=== PATIENT | male | born 1955 | race Caucasian/White ===

== ENCOUNTER → 2024-01-31 | Outpatient (CLI) | payer OTHER | END | disposition home or self-care (01) | LOC: RAH 10:42 | PROVIDERS: ATTEND Physician Assistant | DX: Z13.6 Encounter for screening for cardiovascular disorders (principal) | CPT/HCPCS: 75571 ==

== ENCOUNTER → 2024-03-12 | Outpatient (CLI) | payer MEDICARE | END | disposition home or self-care (01) | LOC: EDUNIT# 13:00 → SHCH 13:02 | PROVIDERS: ATTEND Internal Medicine Cardiovascular Disease | DX: I35.0 Nonrheumatic aortic (valve) stenosis (principal) | CPT/HCPCS: 93306 ==

== ENCOUNTER → 2024-04-09 | Outpatient (CLI) | payer MEDICARE ==
[2024-04-09] MEDS: REGADENOSON 0.4 MG/5 ML PF SYG IVP SCH (13:01)
== END | disposition home or self-care (01) ==
LOC: RAH 08:40
PROVIDERS: ATTEND Internal Medicine Cardiovascular Disease
DX: R07.9 Chest pain, unspecified (principal)
CPT/HCPCS: 78452; 93017; J2785; A9500 ×2

== ENCOUNTER → 2024-08-31 | Outpatient (CLI) | payer MEDICARE | END | disposition home or self-care (01) | LOC: SHCH 10:22 | PROVIDERS: ATTEND Internal Medicine Cardiovascular Disease | DX: I65.21 Occlusion and stenosis of right carotid artery (principal) | CPT/HCPCS: 93880 ==

== ENCOUNTER 2025-06-20 15:32 | Emergency (ER) | payer MEDICARE, OTHER ==
[~2025-06-20] VITALS: Ht 182.9 cm; Wt 74.8 kg
[2025-06-20] MEDS: TRIAMCINOLONE ACETONIDE 40 MG/ML 1ML VIAL IM ONE (16:26)
[2025-06-20] MEDS: ORPHENADRINE 60MG/2ML IM ONE (16:26)
[2025-06-20 16:38] LABS: IMMATURE GRANULOCYTE ABSOLUTE 0.05 K/uL (0-1); NUCLEATED RED BLOOD CELLS 0.0 % (0.0-0.19); PLATELET COUNT (AUTO) 168 K/uL (130-400); RED BLOOD CELL COUNT(AUTO) 3.09 MIL/uL (4.50-6.20); RED CELL DISTRIBUTION WIDTH 14.4 % (11.0-15.5); WHITE BLOOD COUNT (AUTO) 10.3 K/uL (4.8-10.8)
[2025-06-20 16:48] LABS: CREATININE 0.8 mg/dL (0.5-1.3); GLOMERULAR FILTR. RATE CALC 95.0 mL/min (>90); GLUCOSE,RANDOM 100.0 mg/dL (70-105); SODIUM SERUM 135.0 mmol/L (136-145); UREA NITROGEN, BLOOD 16.0 mg/dL (7-18)
[2025-06-20 16:51] LABS: AMPHET/METH SCREEN,URINE NEGATIVE (NEGATIVE); BARBITURATE SCREEN, URINE NEGATIVE (NEGATIVE); CANNABINOID SCREEN,URINE NEGATIVE (NEGATIVE); COCAINE SCREEN,URINE NEGATIVE (NEGATIVE)
[2025-06-20 16:52] LABS: CREATINE KINASE, TOTAL 49.0 U/L (21-232)
[2025-06-20 16:59] VITALS: BP 171/78; PULSE 78; RESP 12; TEMP 97.9; O2SAT 100
[2025-06-20] MEDS ORDERED: NAPR-1196 PO (17:24)
[2025-06-20] MEDS ORDERED: METH-662 PO (17:24)
--- NOTE | 2025-06-20 17:24 | ERN ---
General Chief Complaint: Lower Extremity Pain/Injury Stated Complaint: UPPER BODY ACHES AFTER DOING CHORES 3 DAYS AGO Time Seen by MD: 15:39 Source: patient History of Present Illness Initial Comments Patient is a 69-year-old male coming in complaining of upper back pain. Per patient he has been doing a lot of physical activity. Per patient the tenderness and discomfort is present on bilateral scapular regions. Pain is exacerbated with movement. Allergies: Uncoded Allergies: NKDA (Allergy, Unknown, 04/09/24) Past Medical History Past Medical History: Hypertension, Other Medical History Other: THYROID DISEASE Past Surgical History: Unknown ROS Dictation CONSTITUTIONAL: No chills, no fever, no weakness, no diaphoresis, no malaise. HEAD/FACE: No signs of trauma. EENT: No eye pain, no blurred vision, no tearing, no double vision, no ear pain, no ear discharge, no nose pain, no nasal congestion, no throat pain, no throat swelling, no mouth pain. RESPIRATORY: No cough, no orthopnea, no SOB, no stridor, no wheezing. CARDIOVASCULAR: No chest pain, no edema, no palpitations, no syncope. GASTROINTESTINAL/ABDOMINAL: No abdominal pain, no constipation, no diarrhea, no nausea, no vomiting. GENITOURINARY: No abnormal discharge, no dysuria, no frequent urination, no hematuria. No complaints of pain in the genitals. MUSCULOSKELETAL: No back pain, no gout, no joint pain, no joint swelling, muscle pain, no muscle stiffness, no neck pain. INTEGUMENTARY: No change in color, no change in hair/nails, no dryness, no lesion, no lumps, no rash. NEUROLOGICAL/PSYCH: No anxiety, not depressed, no emotional problem, no headache, no numbness, no pre-existing deficit, no history of seizures, no tremors, no weakness. HEMATOLOGIC/LYMPHATIC: Not anemic, no history of blood clots, no apparent bleeding, no bruising, glands not swollen. All Systems Negative, Except as Noted. Physical Exam Physical Exam Dictation VITAL SIGNS: Reviewed. GENERAL APPEARANCE: Alert, oriented x3, no acute distress, obese. HEAD AND FACE: Non-traumatic. EYES: PERRL, pink conjunctivas, eyelid no trauma, anterior chamber clear. EARS: Pinnas intact and no signs of trauma or erythema. Ear canals clear and no discharge. TMs no erythema. NOSE: No discharge, no bleeding. OROPHARYNX: Mouth normal, teeth no caries, tongue pink. Pharynx clear, no erythema. Tonsils no exudates, no abscesses noted. Mucous membrane moist. NECK: Supple, non-tender, no thyromegaly, no masses, no JVD, no bruits. BREAST: Deferred. CHEST: No tenderness, no crepitus, no paradoxical movement, no retractions. LUNGS: Clear, well-ventilated, symmetric, no rales, no wheezing, no rhonchi, no stridor, good breath sounds bilaterally. HEART: Regular rate, regular rhythm, no murmur, no gallops. VASCULAR: No peripheral edema. ABDOMEN: Soft, positive bowel sounds, nondistended, no guarding, nontender, no rebound, no masses no hepatomegaly, no splenomegaly, no Zepeda's sign, no hernias. RECTAL: Deferred. GENITAL: Deferred. NEUROLOGICAL: Normal speech, gross motor function intact, gross sensory function intact. MUSCULOSKELETAL: Neck nontender, full range of motion, back nontender, full range of motion. EXTREMITIES: Nontender, full range of motion. Bilateral subscapularis discomfort bilateral trapezius muscle tenderness on palpation SKIN: Color pink, dry, no turgor, no rash, no lacerations, no abrasions, no co ntusions. LYMPHATICS: Deferred. Results Laboratory and Microbiology Lab and Micro Result Laboratory Tests Test 06/20/25 16:18 06/20/25 16:27 Urine Opiates Screen NEGATIVE (NEGATIVE) Urine Barbiturates Screen NEGATIVE (NEGATIVE) Urine Phencyclidine Screen NEGATIVE (NEGATIVE) Urine Amphetamines Screen NEGATIVE (NEGATIVE) Urine Benzodiazepines Screen NEGATIVE (NEGATIVE) Urine Cocaine Screen NEGATIVE (NEGATIVE) Urine Marijuana (THC) Screen NEGATIVE (NEGATIVE) White Blood Count 10.3 K/uL (4.8-10.8) Red Blood Count 3.09 MIL/uL (4.50-6.20) L Hemoglobin 8.3 g/dL (14.0-18.0) L Hematocrit 26.5 % (42-54) L Mean Corpuscular Volume 85.8 fL (79-99) Mean Corpuscular Hemoglobin 26.9 pg (27.0-33.0) L Mean Corpuscular Hemoglobin Concent 31.3 g/dL (32.0-36.0) L Red Cell Distribution Width 14.4 % (11.0-15.5) Platelet Count 168 K/uL (130-400) Mean Platelet Volume 8.9 fL (7.5-10.5) Immature Granulocyte % (Auto) 0.5 % (0-1) Neutrophils (%) (Auto) 62.6 % (40.0-77.0) Lymphocytes (%) (Auto) 25.9 % (21.0-51.0) Monocytes (%) (Auto) 9.1 % (3.0-13.0) Eosinophils (%) (Auto) 1.6 % (0.0-8.0) Basophils (%) (Auto) 0.3 % (0.0-5.0) Neutrophils # (Auto) 6.4 K/uL (1.8-7.7) Lymphocytes # (Auto) 2.7 K/uL (1.0-4.8) Monocytes # (Auto) 0.9 K/uL (0.1-1.0) Eosinophils # (Auto) 0.16 K/uL (0.00-0.70) Basophils # (Auto) 0.03 K/uL (0.00-0.20) Absolute Immature Granulocyte (auto 0.05 K/uL (0-1) Nucleated Red Blood Cells 0.0 % (0.0-0.19) Sodium Level 135 mmol/L (136-145) L Potassium Level 3.7 mmol/L (3.5-5.1) Chloride Level 101 mmol/L (101-111) Carbon Dioxide Level 27 mmol/L (21-32) Blood Urea Nitrogen 16 mg/dL (7-18) Creatinine 0.8 mg/dL (0.5-1.3) Glomerular Filtration Rate Calc 95 mL/min (>90) Random Glucose 100 mg/dL (70-105) Total Calcium 8.3 mg/dL (8.5-10.1) L Total Creatine Kinase 49 U/L (21-232) Labs Reviewed?: Yes EKG/XRAY/US/CT/MRI X-RAY Comment Cervical x-ray-NAD MDM MDM: Differential diagnosis: Muscle strain, muscle spasm, Rationale: Tests considered and ordered secondary to shared decision making include: Previous outside records reviewed: Old ER visits. Risk of complication and/or morbidity or mortality of patient management: None Medications-Per medication reconciliation Need for hospitalization: Patient does not meet criteria for hospitalization. Need for emergency major/minor surgery: No In his is a 69-year-old male coming in complaining of back pain. On physical exam bilateral trapezius muscle tenderness x-ray did not disclose acute findings. Patient received antispasmodics and anti-inflammatories we will be discharged in stable condition with a diagnosis of muscle spasms of the back. Laboratory workup within normal limits. ED Course Orders Procedure Category Date Status Time Orphenadrine Citrate PHA 06/20/25 Complete (Norflex) 16:00 Triamcinolone Acet PHA 06/20/25 Complete 40mg/Ml 1ml (Kenalog 16:00 Drug Screen Urine LAB 06/20/25 Complete 16:00 Cbc With Differential LAB 06/20/25 Complete 16:00 Basic Metabolic Panel LAB 06/20/25 Complete 16:00 Creatine Kinase, Total LAB 06/20/25 Complete 16:00 Cerv Spine 2-3vws RAD 06/20/25 Taken 16:33 Current Medications Medications (Trade) Dose Ordered Sig/Beatriz Route PRN Reason Start Time Stop Time Status Last Admin Dose Admin Orphenadrine Citrate (Norflex) 60 mg ONCE ONCE IM 06/20/25 16:00 06/20/25 16:02 DC 06/20/25 16:26 Triamcinolone Acetonide (Kenalog 40) 40 mg ONCE ONCE IM 06/20/25 16:00 06/20/25 16:02 DC 06/20/25 16:26 Vital Signs Date Time Temp Pulse Resp B/P (MAP) Pulse Ox O2 Delivery O2 Flow Rate FiO2 06/20/25 16:59 97.9 78 12 171/78 100 Room Air* 0 21 06/20/25 15:42 97.3 78 12 170/77 100 Room Air* 0 21 DX & DISP Disposition: Discharge Departure Impression: Primary Impression: Spasm, muscle, back Condition: Stable Scripts Naproxen (Naproxen) 250 Mg Tablet 1 TAB PO BID for pain for 5 Days, #10 TAB 0 Refills Prov: JACOBY SIMONS MD 06/20/25 Methocarbamol (Robaxin) 750 Mg Tab 1 TAB PO BID for 5 Days, #10 TAB 0 Refills Prov: JACOBY SIMONS MD 06/20/25 Additional Instructions: FOLLOW-UP WITH PRIMARY CARE PROVIDER IN 1 TO 2 DAYS. TAKE MEDICATIONS DIRECTED HERE IN THE EMERGENCY ROOM. OKAY TO CONTINUE HOME MEDICATIONS UNLESS OTHERWISE DISCUSSED DURING YOUR VISIT IN THE EMERGENCY ROOM TODAY. RETURN TO YOUR NEAREST EMERGENCY ROOM IF SYMPTOMS WORSEN OR IF THERE IS NO IMPROVEMENT. CALL 911 IF YOU NEED IMMEDIATE ASSISTANCE. TAKE TYLENOL [id number] N EEDED AND IF NO CONTRAINDICATIONS ARE PRESENT. INCREASE ORAL HYDRATION. A WOUND CULTURE OR URINE CULTURE WAS ORDERED HERE IN THE EMERGENCY ROOM DEPARTMENT PLEASE FOLLOW-UP WITH PRIMARY CARE PROVIDER AND ADVISE THEM TO GET REPORTS FROM OUR FACILITY. IF YOU HAD ANY WRAP/SPLINTS THAT WERE APPLIED HERE, PLEASE DO NOT REMOVE THEM UNTIL YOU SEE YOUR PRIMARY CARE OR SPECIALTY. Referrals: Referrals: TERE LEONARD MD (PCP) Time of Disposition: 17:23 JACOBY SIMONS MD Jun 20, 2025 17:24
--- NOTE | 2025-06-20 17:53 | HMCIMG ---
EXAM: CR Cervical Spine, 3 View. CLINICAL HISTORY: Neck and upper back pain. COMPARISON: None provided. FINDINGS: BONES: No acute fracture or aggressive-appearing osseous lesion. Cervical vertebral body heights are maintained. DISCS / DEGENERATIVE CHANGES: Loss of normal cervical lordosis, likely due to muscular spasm or postural change. Moderate degenerative cervical spondylosis noted with reduced intervertebral disc space at C5???C6 and C6???C7 levels. Associated endplate osteophyte formation. Posterior vertebral body alignment preserved. SOFT TISSUES: No prevertebral soft tissue swelling. Visualized lung apices clear. IMPRESSION: * Loss of normal cervical lordosis, likely positional or due to muscle spasm. * Moderate degenerative cervical spondylosis with reduced disc space at C5???C6 and C6???C7 levels. * No acute fracture or malalignment. /[place]
== END 2025-06-20 18:00 | disposition home or self-care (01) ==
LOC: EDH 15:32
DX: M62.830 Muscle spasm of back (principal); M54.6 Pain in thoracic spine; I10 Essential (primary) hypertension; E07.9 Disorder of thyroid, unspecified
CPT/HCPCS: 99284; 82550; 80048; 80305; 85025; 36415; 72040; 96372 ×2; J3301; J2360